=== PATIENT | female | born 1975 | race Caucasian/White ===

== ENCOUNTER 2019-08-23 13:42 | Emergency (ER) | payer OTHER ==
[~2019-08-23] VITALS: Ht 167.6 cm; Wt 108.9 kg
[2019-08-23] MEDS ORDERED: PROZAC40 MG PO (14:08)
[2019-08-23] MEDS ORDERED: MIRAPEX0.5 MG PO (14:09)
[2019-08-23 15:09] VITALS: BP 153/93
== END 2019-08-23 15:09 | disposition left against medical advice (07) ==
LOC: M.ERS 13:42 → EDBD 13:42 → M.ERS 15:09
DX: Z53.21 Procedure and treatment not carried out due to patient leaving prior to being seen by health care provider (principal)

== ENCOUNTER 2019-12-16 17:56 | Emergency (ER) | payer OTHER ==
[~2019-12-16] VITALS: Ht 167.6 cm; Wt 102.5 kg
[~2019-12-16 17:56] MED LIST: MIRAPEX0.5 MG PO; PROZAC40 MG PO
[2019-12-16] MEDS ORDERED: WELLBUTRIN SR150 MG PO (18:16)
[2019-12-16] MEDS ORDERED: DESYREL150 MG PO (18:16)
[2019-12-16 18:21] LABS: URINE BILIRUBIN NEGATIVE (Negative); URINE BLOOD NEGATIVE (Negative); URINE CLARITY CLEAR; URINE COLOR YELLOW; URINE GLUCOSE-RANDOM NEGATIVE (Negative); URINE KETONES 1+ (Negative); URINE LEUKOCYTES-REFLEX TRACE (Negative); URINE NITRITE-REFLEX NEGATIVE (Negative); URINE PROTEIN NEGATIVE (Negative); URINE SPECIFIC GRAVITY >= 1.030 (1.005-1.030); URINE UROBILINOGEN 0.2 E.U./dl (0.2-1.0)
[2019-12-16 18:29] LABS: SQUAMOUS >10 Many /LPF (0-3)
[2019-12-16 18:31] LABS: URINE RBC 0-2 Rare /HPF (0-2)
[2019-12-16 18:32] LABS: CASTS None Seen /LPF (None Seen); MUCUS >6 Heavy strn/LPF (None Seen)
[2019-12-16 18:33] LABS: CRYSTALS None Seen /LPF (None Seen)
[2019-12-16] MEDS ORDERED: BACTRIM DS TAB1 EAC1 PO (18:59)
[2019-12-16] MEDS ORDERED: NORCO 5-325 TA1 EAC2 PO (18:59)
[2019-12-16 19:07] VITALS: BP 120/73
== END 2019-12-16 19:08 | disposition home or self-care (01) ==
LOC: M.ERS 17:56
PROVIDERS: Physician Assistant
DX: N39.0 Urinary tract infection, site not specified (principal); G25.81 Restless legs syndrome; F17.210 Nicotine dependence, cigarettes, uncomplicated

== ENCOUNTER 2020-09-21 14:52 | Emergency (ER) | payer OTHER ==
[~2020-09-21] VITALS: Ht 167.6 cm; Wt 80.3 kg
[~2020-09-21 14:52] MED LIST changes: +BACTRIM DS TAB1 EAC1 PO; +DESYREL150 MG PO; +NORCO 5-325 TA1 EAC2 PO; +WELLBUTRIN SR150 MG PO
[2020-09-21] MEDS ORDERED: ADDERALL 10 MG10 MG PO (15:01)
[2020-09-21 18:11] LABS: URINE BILIRUBIN NEGATIVE (Negative); URINE BLOOD NEGATIVE (Negative); URINE CLARITY CLEAR; URINE COLOR YELLOW; URINE GLUCOSE-RANDOM NEGATIVE (Negative); URINE KETONES NEGATIVE (Negative); URINE LEUKOCYTES NEGATIVE (Negative); URINE NITRITE NEGATIVE (Negative); URINE PROTEIN NEGATIVE (Negative); URINE SPECIFIC GRAVITY >= 1.030 (1.005-1.030); URINE UROBILINOGEN 0.2 E.U./dl (0.2-1.0)
[2020-09-21] MEDS ORDERED: XANAX 0.5 MG0.5 M1 PO (18:22)
[2020-09-21 18:25] VITALS: BP 122/69
--- NOTE | 2020-09-22 10:03 | EKG ---
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
== END 2020-09-21 18:25 | disposition home or self-care (01) ==
LOC: M.ERS 14:52
PROVIDERS: Emergency Medicine
DX: R07.89 Other chest pain (principal); G25.81 Restless legs syndrome